=== PATIENT | female | born 1980 | race Caucasian/White ===

== ENCOUNTER 2016-12-15 22:46 | Emergency (ER) | payer MEDICAID ==
[~2016-12-15] VITALS: Ht 160 cm; Wt 59.0 kg
[2016-12-15 23:00] VITALS: BP 125/94
[2016-12-16] MEDS ORDERED: KETOROLAC TROMETH 60MG/2ML VIAL IM ONE (00:45)
== END 2016-12-16 01:06 | disposition home or self-care (01) ==
LOC: ER 22:51
DX: S46.812A Strain of other muscles, fascia and tendons at shoulder and upper arm level, left arm, initial encounter (principal); J31.0 Chronic rhinitis; X58.XXXA Exposure to other specified factors, initial encounter; Y93.89 Activity, other specified; Y92.89 Other specified places as the place of occurrence of the external cause; Y99.8 Other external cause status
CPT/HCPCS: 96372; 99283; J1885